=== PATIENT | male | born 1935 | race Caucasian/White ===

== ENCOUNTER 2019-06-09 11:08 | Inpatient (IN) | payer MEDICARE ==
--- NOTE | 2019-06-09 11:19 | ED ---
Shortness of Breath - HPI Summary HPI Summary: 83 year old male presents to the ED by EMS with a chief complaint of SOB. THIS IS A LEVEL 5 CAVEAT DUE TO AMS. Per EMS, patient's friend found him unresponsive at his home. Per EMS, patient's living environment is extremely dirty, with feces and dirt on the ground around him. Patient has dirt on his clothes. Patient lives alone. He was woken up with O2. Once awake, patient was combative and attempted to hit EMS. Per EMS, patient was short of breath but his breathing improved with duoneb. According to records, patient visited his PCP, Linda MCKEON of [facility] on 06/08/2019. She recommended that the patient be hospitalized for CHF and be sent to hospice. - History of Current Complaint Hx Obtained From: EMS Hx From Patient Unobtainable Due To: Altered Mental Status Onset/Duration: Still Present Current Severity: Mild Alleviating Factors: EMS Tx, Oxygen - Allergy/Home Medications Allergies/Adverse Reactions: Allergies Allergy/AdvReac Type Severity Reaction Status Date / Time No Known Allergies Allergy Verified 12/28/14 10:46 Home Medications: Home Medications Hydrochlorothiazide TAB* [Hydrodiuril TAB*] 12.5 mg PO DAILY 12/28/14 [History Confirmed 12/28/14] Lisinopril [Lisinopril 40 MG-] 40 mg PO DAILY 12/28/14 [History Confirmed ] Metoprolol Tartrate [Lopressor] 50 mg PO DAILY 12/28/14 [History Confirmed 12/28] PMH/Surg Hx/FS Hx/Imm Hx Cardiovascular History: Reports: Hx Congestive Heart Failure, Hx Pacemaker/ICD Musculoskeletal History: Denies: Hx Arthritis, Hx Osteoporosis - Family History Known Family History: Positive: Unknown - Social History Alcohol Use: None Substance Use Type: Reports: None Smoking Status (MU): Never Smoked Tobacco Have You Smoked in the Last Year: No Review of Systems Positive: Shortness Of Breath Positive: Edema All Other Systems Reviewed And Are Negative: No Physical Exam - Summary Physical Exam Summary: Appearance: The patient is well-nourished in no acute distress and in no acute pain. Skin: The skin is warm and dry, and skin color reflects adequate perfusion. HEENT: The head is normocephalic and atraumatic. The pupils are equal and reactive. The conjunctivae are clear and without drainage. Nares are patent and without drainage. Mouth reveals moist mucous membranes, and the throat is without erythema and exudate. The external ears are intact. The ear canals are patent and without drainage. The tympanic membranes are intact. Neck: The neck is supple with full range of motion and non-tender. There are no carotid bruits. There is no neck vein distension. Respiratory: Chest is non-tender. Upper airway sounds increased. Upper respiratory wheezes. Cardiovascular: Heart is regular rate and rhythm. There is no murmur or rub auscultated. There is peripheral edema. Pulses are symmetrical and equal. Abdomen: The abdomen is soft and non-tender. There are normal bowel sounds heard in all four quadrants and there is no organomegaly palpated. Musculoskeletal: There is no back tenderness noted. Extremities are non-tender with full range of motion. There is good capillary refill. There is peripheral edema and erythema on bilateral lower extremities. Old ulcer on LLE. Neurological: Patient is alert but not oriented. The patient has symmetrical motor strength in all four extremities. Cranial nerves are grossly intact. Deep tendon reflexes are symmetrical and equal in all four extremities. Psychiatric: The patient has an appropriate affect and does not exhibit any anxiety or depression. GCS:12 Triage Information Reviewed: Yes Vital Signs Reviewed: Yes Completion Of Physical Exam Limited Due To: Level 5 - [place] Coma Scale Best Eye Response: 4 - Spontaneous Best Motor Response: 5 - Purposeful Movement Best Verbal Response: 3 - Inappropriate Words Coma Scale Total: 12 Procedures - Sedation Patient Received Moderate/Deep Sedation with Procedure: No Diagnostics - Laboratory Result Diagrams: 06/09/19 12:00 06/09/19 12:00 Lab Statement: Any lab studies that have been ordered have been reviewed, and results considered in the medical decision making process. - Radiology CXR Radiology Interpretation Completed By: Radiologist Summary of Radiographic Findings: IMPRESSION: Chest x-ray findings are consistent with pneumonia involving the right lung and likely left lung base pleural effusion and/or lower lobe consolidation. An ED physician has reviewed this scan. - EKG 1204 Cardiac Rate: NL - 80 bpm EKG Rhythm: Sinus Rhythm ST Segment: Normal Ectopy: None Summary of EKG Findings: Normal paced sinus rhythm at 80 bpm, normal ST, no ectopy, no STEMI. No acute changes. Dr. Toribio has interpreted and reviewed this EKG. Re-Evaluation - Re-Evaluation First Eval Re-Evaluation Time: 12:12 Change: Unchanged Comment: Spoke to patient's on the phone. She reports that they are and she has not seen him since fall 2018. Course/Dx - Course Course Of Treatment: Mr. Zuniga was brought in by ambulance with altered mental status. He was found to be poorly responsive after the ambulance was called by a friend who checked on him. The friend had not seen him for several days. The ambulance found the patient to have a low pulse ox in place him on 100% nonrebreather mask. On arrival the patient was found to be hypothermic but otherwise with normal vital signs. He was cantankerous and wanted to be left alone. The ambulance brought in a home visit report from the patient's nurse practitioner from [facility] who saw the patient yesterday. In her reports she stated that she tried to get the patient to come to the hospital yesterday and alternatively to go into hospice. She reported that the patient has a DNR. Chest x-ray revealed the patient had a right-sided infiltrate and my concern was that it may be a mass. He had no leukocytosis. He did have erythematous, edematous legs and although he did not meet septic criteria he was treated with fluids and antibiotics once CHF was ruled out. I spoke with the hospitalist about admitting him. - Diagnoses Provider Diagnoses: COPD exacerbation - Physician Notifications Discussed Care of Patient With: Mary Alonso - Hospitalist Time Discussed With Above Provider: 12:50 Instructed by Provider To: Admit As Observation - I spoke to Dr. Alonso of hospital services at 1250 and she recommended admission of the patient as observation. Admit/Transition Orders Completed By ED Provider: Yes Discharge ED - Sign-Out/Discharge Documenting (check all that apply): Patient Departure - admit - Discharge Plan Condition: Stable Disposition: ADMITTED TO [facility] - Billing Disposition and Condition Condition: STABLE Disposition: Admitted to [facility] - Attestation Statements Document Initiated by Scribe: Yes Documenting Scribe: Christofer Harmon Provider For Whom Scribe is Documenting (Include Credential): Dr. Michael Toribio Scribe Attestation: I, Christofer Harmon, scribed for Dr. Michael Toribio on 06/09/19 at 2040. Scribe Documentation Reviewed: Yes Provider Attestation: The documentation as recorded by the scribe, Christofer Harmon accurately reflects the service I personally performed and the decisions made by me, Dr. Michael Toribio Status of Scribe Document: Viewed
[2019-06-09] MEDS ORDERED: Lorazepam PYXIS KEY PRN ×2 (11:50→15:09)
[2019-06-09] MEDS ORDERED: LORazepam INJ* 2 MG/ML 1 ML VIAL IV ONE (11:50)
[2019-06-09] MEDS ORDERED: Lorazepam PYXIS KEY ONE (11:53)
[2019-06-09 12:08] LABS: ABS Lymphocytes 1.3 10^3/ul (1.0-4.8); ABS Monocytes 0.5 10^3/ul (0-0.8); ABS Neutrophils 7.9 10^3/ul (1.5-7.7); Eosinophil % 0.3 %; Hematocrit 45 % (42-52); Hemoglobin 15.5 g/dL (14.0-18.0); Lymphocyte % 13.4 %; Mean Corpuscular HGB Conc 34 g/dL (31-36); Mean Corpuscular Hemoglobin 29 pg (27-31); Mean Corpuscular Volume 86 fL (80-94); Mean Platelet Volume 7.3 fL (7.4-10.4); Nucleated Red Blood Cells % 0.1; Platelet Count 295 10^3/uL (150-450); Red Blood Count 5.25 10^6 /uL (4.18-5.48); Red Cell Distribution Width 15 % (10-15); White Blood Count 9.7 10^3/uL (3.5-10.8)
[2019-06-09 12:26] LABS: Albumin 3.6 g/dL (3.2-5.2); Albumin/Globulin Ratio 1.2 (1-3); BUN/Creatinine Ratio 29.4 (8-20); C Reactive Protein 40.64 mg/L (<8.01); Calcium 9.3 mg/dL (8.6-10.3); EGFR African American 60.3 (>60); EGFR Non-African American 49.8 (>60); Globulin 3.1 g/dL (2-4); Potassium 3.6 mmol/L (3.5-5.0); Total Bilirubin 0.7 mg/dL (0.2-1.0); Total Protein 6.7 g/dL (6.4-8.9)
[2019-06-09 12:29] LABS: Troponin I 0.11 ng/mL (<0.03)
[2019-06-09 12:36] LABS: Activated Partial Thrombo Time 45.2 seconds (26.0-38.0); INR 1.06 (0.82-1.09)
[2019-06-09] MEDS ORDERED: Vancomycin(*) 1,000 MG in NS 0.9% 250 ML* 250 ML IV ONE (12:50)
[2019-06-09] MEDS ORDERED: Cefepime(*) 1 GM in NS 0.9% 50 ML* 50 ML IVPB ONE (12:50)
[2019-06-09] MEDS ORDERED: NS 0.9% 50 ML* 50 ML ONE (13:00)
[2019-06-09] MEDS: NS 0.9% 1000 ML** 2,000 ML IV ONE ×2 (13:15→15:16)
[2019-06-09] MEDS ORDERED: Cefepime 1 GM in Dextrose(*) 1 GM/50 ML BAG IV ONE (13:15)
[2019-06-09 14:16] LABS: Urine Appearance Clear; Urine Bilirubin Negative (Negative); Urine Blood 1+ (Negative); Urine Color Yellow; Urine Glucose 1+(50 mg/dL) (Negative); Urine Ketones Trace (Negative); Urine Nitrite Negative (Negative); Urine Protein 2+(100 mg/dL) (Negative); Urine Specific Gravity 1.016 (1.010-1.030); Urine Urobilinogen Negative (Negative)
[2019-06-09 14:20] LABS: Urine Bacteria Absent (Absent); Urine Red Blood Cell Absent (Absent); Urine White Blood Cell Trace(0-5/hpf) (Absent)
[2019-06-09] MEDS ORDERED: Vancomycin(*) 1,000 MG BAG/ADDV ONE (14:39)
[2019-06-09] MEDS ORDERED: Morphine INJ* 2 MG/ML 1 ML SYRINGE (TWO MG - NEW SYRINGE VERSION) IV PRN (15:07)
[2019-06-09] MEDS ORDERED: Ondansetron INJ* 2 MG/ML VIAL IV PRN (15:07)
[2019-06-09] MEDS ORDERED: Atropine 1% (ORAL/SL)* 15 ML BTL SL PRN (15:10)
[2019-06-09] MEDS ORDERED: NS 0.9% 1000 ML** 1,000 ML IV SCH (15:30)
[2019-06-09] MEDS: Morphine INJ* 2 MG/ML 1 ML SYRINGE (TWO MG - NEW SYRINGE VERSION) IV PRN ×2 (15:47→23:22)
--- NOTE | 2019-06-09 16:52 | HP ---
ADMISSION HISTORY AND PHYSICAL: DATE OF ADMISSION: 06/09/19 PRIMARY CARE PROVIDER: LINDA Neves, of [facility]. SOURCE OF INFORMATION: History obtained from interview with the patient's healthcare proxy and friend, Luis Alberto Poole, . RELIABILITY: Good. CODE STATUS: DNR/DNI, confirmed with healthcare proxy and consistent with notes from his PCP. CHIEF COMPLAINT: Found down. HISTORY OF PRESENT ILLNESS: This is an 83-year-old man with past medical history of permanent pacemaker in the setting of pauses, hypertension, BPH, syncope, type 2 diabetes, hyperlipidemia, chronic anemia, paroxysmal supraventricular tachycardia, who lives alone with significant help from his friend, Luis Alberto, notes that he had been in his usual state of health, although his legs have been starting to increase in size. Over the 2 weeks prior to presentation, he had been prescribed Lasix. Two days prior to presentation, he was noted to have "rattling in his lungs" and was scheduled to his PCP, which he did yesterday. There were no fevers, chills, nausea, vomiting, but he was increasingly fatigued. He saw his PCP yesterday and it was thought that he had a CHF exacerbation, was advised to come to [facility]; however, the patient declined. Additionally, the patient was offered hospice at that time and he declined. Extensive conversations with his healthcare proxy, Luis Alberto, note that he very much missed his 3 children who predeceased him and wanted to at home that he was "ready to pass" and that he was told that he had 2 weeks to live at the time that he saw his PCP and reportedly was "okay" with that. Luis Alberto checked in on Mr. Zuniga today, found him in his chair mostly undressed and minimally responsive. Luis Alberto was unsure if the patient would want to come to the emergency room given his wish to at home. He indeed asked him and he indicated that he thought that Mr. Zuniga did say yes and so he activated EMS. On presentation to the emergency room, the patient's core temperature was 83.7. Of note, the patient keeps his temperature at home between 55 and 60 as would he did and his stove frequently goes out, and he was noted to be partially undressed, covered in feces by EMS when they arrived. PAST MEDICAL HISTORY: Permanent pacemaker in 2010, history of pauses for which he received permanent pacemaker; hypertension; BPH; syncope; history of epistaxis requiring surgery; type 2 diabetes; hyperlipidemia; chronic anemia; history of SVT. All per notes. HOME MEDICATIONS: Recent visit with his PCP discontinued metoprolol and started Lasix. ALLERGIES: No known drug allergies. FAMILY HISTORY: Unable to obtain. SOCIAL HISTORY: Lives home alone. Walks with cane, but still driving. 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 REVIEW OF SYSTEMS: Unable to obtain other than through Luis Alberto. PHYSICAL EXAMINATION GENERAL: Elderly man, lying flat in bed, opens his eyes to command, otherwise minimally reactive, localizes to pain. VITAL SIGNS: In the emergency room, core temperature on presentation was 83.7, was 88.5 when seen by this author; blood pressure 144/102, decreased to a elaina of 72/52, increased to 134/83 with fluid boluses; heart rate of 68; respiratory rate is 18; 95% on a face mask. HEENT: His oropharynx is clear. He has dry mucous membranes. Sclerae are anicteric. NECK: He has non-elevated JVD. LUNGS: Difficult to auscultate posterior oconnor, but clear anteriorly. HEART: He has regular rate and rhythm. Soft 2/6 systolic ejection murmur, loudest in the left upper sternal border. He is unable to sit up. ABDOMEN: Soft, but he does have tenderness throughout. EXTREMITIES: Warm and well perfused. He has 1+ bilateral lower extremity edema with patchy erythema below the knees bilaterally and a large well- circumscribed ulcer on his left lower leg. NEUROLOGIC: He is alert and oriented x0. Does open his eyes as indicated, retracts to pain, localizes, opens his eyes. Moving all extremities. DIAGNOSTIC STUDIES/LAB DATA: Labs reviewed. White blood cell count is 9.7, hemoglobin 15.5, platelets 295. BUN 40, creatinine 1.36. Lactic acid 2.6, decreased to 2.3. His troponin is 0.11, CRP is 40, BNP is 351. His urine is notable for blood and ketones. Data reviewed. Chest x-ray: Formal impression is new densities overlying the inferior aspect of the right upper lobe as well as overlying the right lower lobe. Density obscures the left hemidiaphragm and causes left costophrenic angle blunting. Chest x-ray finding was consistent with pneumonia involving the right lung and likely the left lung base pleural effusion and/or lower lobe consolidation. ASSESSMENT AND PLAN: This is an 83-year-old man who has had declining health, now presenting with altered mental status, presenting with sepsis as well as suspected right-sided pneumonia and suspicion of cellulitis. 1. Sepsis. Suspect pneumonia, although lower extremity cellulitis and/or infected ulcer of his left leg are in the differential. Received cefepime and vancomycin in the emergency room. We would transition him to ceftriaxone and azithromycin for community-acquired pneumonia, also cover lower extremity cellulitis unless it is methicillin-resistant Staphylococcus aureus, although I believe that his lung source is the primary etiology. Additional 1 L normal saline at 250 cc per hour and reevaluate if needs more. Currently, his blood pressure and heart rate are well controlled. Continue warming blankets. The patient's healthcare proxy as well as his sister, who is present, indicate that he did not want escalation of care and he would just want to be comfortable with goals of returning home. To this end, we will treat with antibiotics and fluids, but we would not plan on escalating care and we will admit to the floor. He would not want any interventions. Repeat lactic acid after a liter of fluid. 2. Elevated troponin, likely in the setting of demand in the setting of sepsis. We will repeat, although would not plan on intervention per family's request. 3. Acute and/or chronic kidney injury, again in the setting of suspected sepsis secondary to pneumonia or lower extremity cellulitis. Fluids as indicated above. Repeat tomorrow. 4. Suspected congestive heart failure based on history and previous diagnosis from outpatient PCP. Holding Lasix at this time in the setting of hypotension and sepsis. If the patient regains more of his consciousness and would want to pursue with transthoracic echocardiogram and/or intervention, we will do so tomorrow. [id number]/[facility] #: [id number] JOSE
[2019-06-09 17:45] LABS: Troponin I 0.13 ng/mL (<0.03)
[2019-06-09 19:24] LABS: Troponin I 0.12 ng/mL (<0.03)
[2019-06-09] MEDS ORDERED: Azithromycin IV(*) 250 MG in NS 0.9% 250 ML* 250 ML IVPB SCH (21:00)
[2019-06-09] MEDS ORDERED: cefTRIAXone(*) 2 GM in NS 0.9% 100 ML* 100 ML IVPB SCH (21:00)
[2019-06-09 21:52] LABS: Troponin I 0.15 ng/mL (<0.03)
[2019-06-09] MEDS ORDERED: Benzonatate CAP* 100 MG PO ONE (23:07)
[2019-06-10] MEDS: Morphine INJ* 2 MG/ML 1 ML SYRINGE (TWO MG - NEW SYRINGE VERSION) IV PRN (04:34)
[2019-06-10 06:02] LABS: ABS Lymphocytes 0.5 10^3/ul (1.0-4.8); ABS Monocytes 0.6 10^3/ul (0-0.8); ABS Neutrophils 8.1 10^3/ul (1.5-7.7); Hematocrit 38 % (42-52); Hemoglobin 12.8 g/dL (14.0-18.0); Mean Corpuscular HGB Conc 34 g/dL (31-36); Mean Corpuscular Hemoglobin 29 pg (27-31); Mean Corpuscular Volume 86 fL (80-94); Platelet Count 264 10^3/uL (150-450); Red Blood Count 4.38 10^6 /uL (4.18-5.48); Red Cell Distribution Width 15 % (10-15); White Blood Count 9.2 10^3/uL (3.5-10.8)
[2019-06-10 06:22] LABS: BUN/Creatinine Ratio 26.4 (8-20); Calcium 8.7 mg/dL (8.6-10.3); EGFR African American 50.3 (>60); EGFR Non-African American 41.6 (>60); Potassium 4.2 mmol/L (3.5-5.0)
[2019-06-10] MEDS ORDERED: Influenza VAC *QUAD* 2019-20* 0.5 ML SYRINGE IM ONE (08:00)
[2019-06-10] MEDS ORDERED: Furosemide IV* 10 MG/ML VIAL (40 MG) IV SLOW PU ONE (09:20)
--- NOTE | 2019-06-10 09:24 | PN ---
Subjective Date of Service: 06/10/19 Interval History: Mr. Zuniga is feeling fine this morning. He offers no complaints. Denies SOB, but reports frequent productive cough. Denies CP. He could not verbalize that he was in the hospital, but when asked if he thought this was the hospital, he thought that sounded correct. He is not hungry right now and does not want to fill out his menu. Nursing reports blood-tinged sputum. Family History: Unchanged from Admission Social History: Unchanged from Admission Past Medical History: Unchanged from Admission Objective Active Medications: Atropine Sulfate (Atropine 1% (Oral/Sl)*) 2 drop SL Q2H PRN secretions Azithromycin 250 mg/ Sodium (Chloride) 250 mls @ 250 mls/hr IVPB Q24H ISABEL Ceftriaxone Sodium 2 gm/ (Sodium Chloride) 100 mls @ 200 mls/hr IVPB Q24H ISABEL Lorazepam (Ativan Inj*) 1 mg IV PUSH Q4H PRN ANXIETY Morphine Sulfate (Morphine Inj (Syringe))*) 2 mg IV Q4H PRN PAIN - SEVERE Ondansetron HCl (Zofran Inj*) 4 mg IV Q4H PRN NAUSEA/VOMITING Vital Signs - 8 hr 06/10/19 06/10/19 06/10/19 04:34 04:42 07:15 Temperature 96.7 F 97.2 F Pulse Rate 72 70 Respiratory 22 24 18 Rate Blood Pressure 116/61 146/68 (mmHg) O2 Sat by Pulse 91 98 Oximetry Oxygen Devices in Use Now: Nasal Cannula - 2L Appearance: Elderly male sitting in bed in NAD Ears/Nose/Mouth/Throat: Mucous Membranes Moist Neck: NL Appearance and Movements; NL JVP, Trachea Midline Respiratory: Symmetrical Chest Expansion and Respiratory Effort, - - Audible wheeze, crackles bilat bases, RML and RLL wheezing Cardiovascular: NL Sounds; No Murmurs; No JVD, RRR Extremities: - - +2 pitting groin and BLE Skin: - - Multiple abrasions and ulcerations to BLE Neurological: - - Oriented to self Lines/Tubes/Other Access: Clean, Dry and Intact Peripheral IV Nutrition: Taking PO's Result Diagrams: 06/10/19 05:45 06/10/19 05:45 Assess/Plan/Problems-Billing Assessment: Mr. 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 - Patient Problems (1) Pneumonia Code(s): J18.9 - PNEUMONIA, UNSPECIFIED ORGANISM Comment: - Productive cough and requiring oxygen to maintain sats - CXR on admission showing bilat pneumonia and left pleural effusion - Pending sputum culture - Continue azithroymcin (day 2), ceftraiaxone (day 2) (2) Acute congestive heart failure Code(s): I50.9 - HEART FAILURE, UNSPECIFIED Comment: - Significant BLE edema and basilar crackles - Unclear if patient was taking furosemide as prescribed - Pending echo to determine EF - Will leave Hong in place for now to monitor output - Furosemide x1 today and resume home furosemide tomorrow, but may require further diuresis (3) Cellulitis Code(s): L03.90 - CELLULITIS, UNSPECIFIED Comment: - BLE erythema and large LLE ulcer, though unclear if the erythema is actually financial services sales representative of cellulitis - Continue ceftriaxone (4) Hypothermia Code(s): T68.XXXA - HYPOTHERMIA, INITIAL ENCOUNTER Comment: - Temp 83.7 on presentation, now resolved - May be partly attributable to sepsis, but more likely this is environmental as the patient was found naked and typically keeps his house around 55 degrees - D/c Yanelisuggleo (5) Sepsis Comment: - Resolved - Present on admission with hypothermia, tachycardia, lactic acidosis - One hypotensive reading, but BP responsive to IVF, not requiring pressors - Source is pneumonia/cellulitis (6) Acute respiratory failure with hypoxia Code(s): J96.01 - ACUTE RESPIRATORY FAILURE WITH HYPOXIA Comment: - Requiring 2L NC - Secondary to pneumonia - Wean as tolerated (7) Elevated troponin Code(s): R79.89 - OTHER SPECIFIED ABNORMAL FINDINGS OF BLOOD CHEMISTRY Comment : - Currently 0.15, asymptomatic and without EKG changes - Family would not want to pursue any invasive measures (8) HTN (hypertension) Code(s): I10 - ESSENTIAL (PRIMARY) HYPERTENSION Comment: - Normotensive - Continue furosemide (9) CKD (chronic kidney disease) stage 3, GFR 30-59 ml/min Code(s): N18.3 - CHRONIC KIDNEY DISEASE, STAGE 3 (MODERATE) Comment: - Creatinine consistent with data from 2015 (10) DVT prophylaxis Code(s): Z29.9 - ENCOUNTER FOR PROPHYLACTIC MEASURES, UNSPECIFIED Comment: - Heparin SQ (11) DNR (do not resuscitate) Comment: Status and Disposition: Inpatient. Anticipate d/c home vs [facility] when medically stable, timeframe TBD by clinical course. Attending: Lanette Hastings
[2019-06-10 15:26] LABS: Troponin I 0.29 ng/mL (<0.03)
--- NOTE | 2019-06-10 19:53 | PN ---
Hospitalist Progress Note Date of Service: 06/10/19 Clinical Update: 83M PMH SSS and hx of SVT s/p PPM, HFrEF (last EF 45%) with ICD, CKD3, BPH, HTN who came in hypothermic meeting criteria for severe sepsis 2/2 to PNA and cellulitis with hospital course c/b CHENG and CHF exacerbation Has been on Azithro and CTX also stared IV lasix. Called by the nurse niya, pt extremely lethargic, difficult to arouse, sig scrotal edema and R sided inguinal hernia vs worsening edema that is soft (no e/o incarceration). VS show temp low again needing misti hugger. PE: V. lethargic man, largely unresponsive opens eyes to voice and tactile, doesn't follow commands, non verbal Pupils are pinpoint but reactive CN grossly intact, moves all 4 limbs to pain RRR 2/6 BISHOP Ant lungs with crackles Belly soft mildly tender in suprapubic Inguinal R sided soft swelling (hernia) vs worsening edema, sig scrotal edema, hunter with dark urine Blt LE with bright erythema L with large eschar 3+ pitting edema to blt thighs Skin with mult tears Assessment: 83 M with above PmHx, critically ill again meeting sepsis criteria via qSOFA for AMS and temp (not SIRS as only 1+ for temp), I discussed with his family his decline in status and had a long thoughtful conversation with health care proxy Luis Alberto, his sister, and his Abril. The next steps would be to broaden his abx, probably do an ABG, re apply misti cavazos, re culture--Luis Alberto (health care proxy) and his sister and his feel that he would not want aggressive measures, that in fact he would not even want abx or to be hospitlized other than for pain control. His prognosis is poor, Luis Alberto agrees to d/c abx and transition towards LEGAL LIBRARIAN This is done by phone and witnessed by myself and JANIE Dee is updated Plan DC ABX transition off of Misti hugger as pt doesn't want it! Give dose of Lasix once for comfort IV morphine, oral morphine, ativan All measures for comfort, will likely pass in days but if continues to survive may be elgible for home hospice which Luis Alberto is willing to do
[2019-06-10] MEDS ORDERED: Furosemide IV* 10 MG/ML VIAL (40 MG) IV ONE (20:28)
[2019-06-10] MEDS ORDERED: Heparin VIAL(*) 5000 UNITS/ML VIAL (FIVE THOUSAND) SUBCUT SCH (22:00)
[2019-06-10] MEDS: LORazepam INJ* 2 MG/ML 1 ML VIAL IV PUSH PRN (22:17)
[2019-06-10] MEDS: Morphine ORAL CONCENTRATE* 5 MG/0.25 ML ORAL.SYRIN SL PRN (22:17)
[2019-06-10 23:06] VITALS: BP 140/82
[2019-06-11] MEDS: LORazepam INJ* 2 MG/ML 1 ML VIAL IV PUSH PRN ×3 (05:07→20:23)
[2019-06-11] MEDS: Morphine INJ* 2 MG/ML 1 ML SYRINGE (TWO MG - NEW SYRINGE VERSION) IV PRN ×2 (05:08→10:21)
[2019-06-11] MEDS ORDERED: Furosemide TAB* 20 MG PO SCH (09:00)
--- NOTE | 2019-06-11 10:18 | PN ---
Subjective Date of Service: 06/11/19 Interval History: Mr. Zuniga is feeling okay this morning. He will not verbalize anything to me, but will nod/shake his head to simple questions. Does admit to feeling a bit SOB. Sitting in a recliner right not and is not comfortable. Nursing reports patient was kicking BaiStarbatesugger off this morning and refused to leave it on. Family History: Unchanged from Admission Social History: Unchanged from Admission Past Medical History: Unchanged from Admission Objective Active Medications: Acetaminophen (Tylenol 650 Mg Supp) 650 mg KS Q4H PRN FEVER Atropine Sulfate (Atropine 1% (Oral/Sl)*) 2 drop SL Q2H PRN secretions Lorazepam (Ativan Inj*) 1 mg IV PUSH Q4H PRN ANXIETY\ Morphine Sulfate (Morphine Inj (Syringe))*) 2 mg IV Q4H PRN PAIN - SEVERE Morphine Sulfate (Morphine Oral Concentrate*) 5 mg SL Q2H PRN PAIN - SEVERE Ondansetron HCl (Zofran Inj*) 4 mg IV Q4H PRN NAUSEA/VOMITING Vital Signs - 8 hr 06/11/19 06/11/19 06/11/19 05:07 05:08 06:09 Respiratory 28 27 16 Rate Oxygen Devices in Use Now: Nasal Cannula - 3L Appearance: Elderly male sitting in chair in NAD Ears/Nose/Mouth/Throat: Mucous Membranes Moist Neck: NL Appearance and Movements; NL JVP, Trachea Midline Respiratory: Symmetrical Chest Expansion and Respiratory Effort, - - Coarse crackles throughout Cardiovascular: NL Sounds; No Murmurs; No JVD, RRR Extremities: - - +2 pitting BLE Neurological: - - Awake, nonverbal Lines/Tubes/Other Access: Clean, Dry and Intact Peripheral IV Result Diagrams: 06/10/19 05:45 06/10/19 05:45 Assess/Plan/Problems-Billing Assessment: Mr. 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 - Patient Problems (1) Comfort measures only status Code(s): Z51.5 - ENCOUNTER FOR PALLIATIVE CARE Comment: - Dropped temp again overnight 06/09 and family was contacted, now opting for comfort care d/t failing conservative management - Continue morphine, lorazepam, atropine (2) Pneumonia Code(s): J18.9 - PNEUMONIA, UNSPECIFIED ORGANISM Comment: - Abx stopped per HCP (3) Acute congestive heart failure Code(s): I50.9 - HEART FAILURE, UNSPECIFIED Comment: - Titrate oxygen for comfort (4) Cellulitis Code(s): L03.90 - CELLULITIS, UNSPECIFIED Comment: - Abx stopped per HCP (5) Hypothermia Code(s): T68.XXXA - HYPOTHERMIA, INITIAL ENCOUNTER Comment: - Patient not tolerating Bairhugger, so will stop checking temp (6) Sepsis Comment: - Resolved - Present on admission with hypothermia, tachycardia, lactic acidosis - One hypotensive reading, but BP responsive to IVF, not requiring pressors - Source is pneumonia/cellulitis (7) Acute respiratory failure with hypoxia Code(s): J96.01 - ACUTE RESPIRATORY FAILURE WITH HYPOXIA Comment: - Titrate oxygen for comfort (8) Elevated troponin Code(s): R79.89 - OTHER SPECIFIED ABNORMAL FINDINGS OF BLOOD CHEMISTRY Comment : - Asymptomatic (9) HTN (hypertension) Code(s): I10 - ESSENTIAL (PRIMARY) HYPERTENSION Comment: - D/c furosemide (10) CKD (chronic kidney disease) stage 3, GFR 30-59 ml/min Code(s): N18.3 - CHRONIC KIDNEY DISEASE, STAGE 3 (MODERATE) Comment: - Creatinine consistent with data from 2015 (11) DVT prophylaxis Code(s): Z29.9 - ENCOUNTER FOR PROPHYLACTIC MEASURES, UNSPECIFIED Comment: - None in the setting of comfort measures only (12) DNR (do not resuscitate) Comment: Status and Disposition: Inpatient for comfort care. May require SNF placement for hospice. Attending: Lanette Hastings
[2019-06-12] MEDS: Morphine ORAL CONCENTRATE* 5 MG/0.25 ML ORAL.SYRIN SL PRN ×6 (00:49→22:28)
[2019-06-12] MEDS: LORazepam INJ* 2 MG/ML 1 ML VIAL IV PUSH PRN ×2 (00:50→09:50)
[2019-06-12] MEDS ORDERED: LORazepam TAB(*) 1 MG PO PRN (14:26)
--- NOTE | 2019-06-12 14:33 | PN ---
Subjective Date of Service: 06/12/19 Interval History: Per nursing, patient showing some signs of agitation earlier this morning at change of shift. Patient was confused and attempting to get out of bed. Patient is unable to answer questions at time of evaluation. Appears to be attempting to sit up. Family History: Unchanged from Admission Social History: Unchanged from Admission Past Medical History: Unchanged from Admission Objective Active Medications: Acetaminophen (Tylenol 650 Mg Supp) 650 mg MN Q4H PRN PRN Reason: FEVER Atropine Sulfate (Atropine 1% (Oral/Sl)*) 2 drop SL Q2H PRN PRN Reason: secretions Lorazepam (Ativan Tab(*)) 1 mg PO Q3H PRN PRN Reason: ANXIETY Miscellaneous (Ativan Pyxis Frank) 1 ea N/A .ATIVAN IV FRANK PRN PRN Reason: PYXIS FRANK Morphine Sulfate (Morphine Inj (Syringe))*) 2 mg IV Q4H PRN PRN Reason: PAIN - SEVERE Last Admin: 06/11/19 10:21 Dose: 2 mg Morphine Sulfate (Morphine Oral Concentrate*) 5 mg SL Q2H PRN PRN Reason: PAIN - SEVERE Last Admin: 06/12/19 13:52 Dose: 5 mg Ondansetron HCl (Zofran Inj*) 4 mg IV Q4H PRN PRN Reason: NAUSEA/VOMITING Vital Signs - 8 hr 06/12/19 06/12/19 06/12/19 07:53 07:58 09:50 Respiratory 22 16 18 Rate 06/12/19 06/12/19 06/12/19 09:52 09:53 11:24 Respiratory 18 16 16 Rate 06/12/19 06/12/19 11:50 13:52 Respiratory 16 22 Rate Oxygen Devices in Use Now: Nasal Cannula Appearance: Elderly white male, laying in hospital bed, appearing comfortable but somewhat agitated, attempting to sit up Eyes: - - palpebral conjunctivae appear erythematous Respiratory: Symmetrical Chest Expansion and Respiratory Effort, - - CTA anteriorly Cardiovascular: - - tachycardic to 100s, regular rhythm Abdominal: - - abd soft, nondistended Extremities: - - trace edema in bilateral LEs pretibially Skin: - - erythema to bilateral lower extremities, including surrounding approx 5cm diameter wound on LLE Neurological: - - alert but oriented x0 Result Diagrams: 06/10/19 05:45 06/10/19 05:45 Microbiology and Other Data: Microbiology 06/09/19 11:22 Urine Culture - Final Urine No Growth (<1,000 CFU/mL) 06/09/19 11:59 Aerobic Blood Culture - Final Blood Venous Not Reportable Anaerobic Blood Culture - Final Not Reportable Blood Culture - Preliminary No Growth Day 1 06/09/19 12:23 Aerobic Blood Culture - Preliminary Blood Venous No Growth Day 1 Anaerobic Blood Culture - Preliminary No Growth Day 1 06/10/19 10:15 Gram Stain - Final Sputum Assess/Plan/Problems-Billing Assessment: Mr. 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 - Patient Problems (1) Comfort measures only status Current Visit: Yes Status: Acute Code(s): Z51.5 - ENCOUNTER FOR PALLIATIVE CARE SNOMED Code(s): 70827098470884 Comment: -Patient presented with hypothermia, initially 83.7 degrees Fahrenheit. Found to have sepsis secondary to pneumonia and cellulitis. Hypothermia did improve somewhat but remained hypothermic. Developed acute respiratory failure as well, likely 2/2 pneumonia and acutely decompensated HF -With ongoing hypothermia, family has agreed to comfort measures only at this time - Continue morphine, lorazepam, atropine (2) DNR (do not resuscitate) Current Visit: Yes Status: Acute Comment: Status and Disposition: Inpatient for comfort care. May require SNF placement for hospice.
--- NOTE | 2019-06-13 01:56 | DS ---
CC: LINDA Neves, [facility]* SUMMARY: DATE OF ADMISSION: 06/09/19 DATE OF : 06/12/19 TIME OF : 11:58 p.m. PRIMARY CARE PROVIDER: LINDA Neves, [facility]. MY ATTENDING PHYSICIAN: Dr. Geraldine Espana* (report being dictated by Saman Colmenares NP). PRINCIPAL DIAGNOSIS: Include acute hypoxic respiratory failure due to possible bacterial pneumonia and sepsis. HISTORY OF PRESENT ILLNESS: Mr. Zuniga was admitted on 06/09/19. I will refer you to Dr. Alonso's H and P for further details. HOSPITAL COURSE: An 83-year-old male who was admitted by Dr. Alonso, I will refer you to his H and P for further details. He presented with complaints of being found down. It was unclear how long he had been down for. His friend Luis Alberto noted that he had been in his usual state of health, although his legs had started to increase in size over the last 2 weeks prior to presentation and he had been prescribed Lasix. Two days prior to presentation, he was having rattling in his lungs. He had seen his primary. There was no fever or chills, nausea or vomiting, but he was fatigued. He saw his PCP the day prior to admission, thought he had CHF exacerbation, advised to come to [facility] but the patient declined. He was also offered hospice at that time and he declined. The patient's friend Luis Alberto checked in on Mr. Zuniga that day and found him in his chair, mostly undressed and minimally responsive. EMS was activated and he came into the ER. It was noted that his core temperature was 83.7, and it was noted that the patient keeps his house between 55 and 60 degrees and it was noted that his stove had gone out and he was partially undressed and covered in feces when the EMS arrived. The patient was ultimately admitted. He was thought to have sepsis suspected to pneumonia, although cellulitis could be a possibility. He was started on antibiotics. The patient the next day initially in the morning was doing well; however, over the night of 06/10/19, the patient had become lethargic, unresponsive, unable to open his eyes to voice or tactile stimuli, was not following commands which had been a change from earlier in the day. The overnight physician Dr. Barrera discussed at length with the family his poor and guarded prognosis and ultimately the patient's healthcare proxy wanted to pursue comfort measures only. The patient was started on comfort measures on 06/10/19. He was kept comfortable throughout the day on 06/11/19 and today, and today on 06/12/19 at 11:58, the patient was pronounced . At this point, we are trying to contact the family to discuss postmortem care and to see if they would want any further investigations such as autopsy. We will certainly reach out to them and nursing staff will be trying to reach them. TIME SPENT: Time spent on the discharge was 40 minutes, of which half the time was spent completing the discharge plan. SAMAN COLMENARES NP [id number]/CPS #: [id number] MTDD
== END 2019-06-12 23:58 | disposition expired | DRG 871 ==
LOC: ED 11:08 → MED 15:07
PROVIDERS: ADMIT Internal Medicine; ATTEND Internal Medicine
DX: A41.9 Sepsis, unspecified organism (principal); J96.01 Acute respiratory failure with hypoxia; J15.9 Unspecified bacterial pneumonia; N17.9 Acute kidney failure, unspecified; E87.2 Acidosis; I13.0 Hypertensive heart and chronic kidney disease with heart failure and stage 1 through stage 4 chronic kidney disease, or unspecified chronic kidney disease; L03.119 Cellulitis of unspecified part of limb; I47.1 Supraventricular tachycardia; L97.829 Non-pressure chronic ulcer of other part of left lower leg with unspecified severity; I24.8 Other forms of acute ischemic heart disease; T68.XXXA Hypothermia, initial encounter; I50.9 Heart failure, unspecified; Z66 Do not resuscitate; E11.622 Type 2 diabetes mellitus with other skin ulcer; N18.3 Chronic kidney disease, stage 3 (moderate); Z51.5 Encounter for palliative care; E78.5 Hyperlipidemia, unspecified; I95.9 Hypotension, unspecified; N40.0 Benign prostatic hyperplasia without lower urinary tract symptoms; E11.9 Type 2 diabetes mellitus without complications; R74.8 Abnormal levels of other serum enzymes; Z86.2 Personal history of diseases of the blood and blood-forming organs and certain disorders involving the immune mechanism; Z95.0 Presence of cardiac pacemaker; Z86.79 Personal history of other diseases of the circulatory system; Z79.899 Other long term (current) drug therapy
CPT/HCPCS: 36415; 71045; 80048; 80053; 81003; 81015; 83605; 83880; 84484; 85025; 85610; 85730; 86140; 87040; 87086; 87205; 93005; 96361; 96365; 96375; 99284; A9270-GY; J0456; J0692; J0696; J1940; J2060; J2270; J3370